=== PATIENT | female | born 2000 | race Caucasian/White ===

== ENCOUNTER 2023-07-01 13:45 | Outpatient (RCR) | payer BC, SELFPAY | END 2023-07-04 09:31 | disposition home or self-care (01) | PROVIDERS: PCP Family Medicine; Visit Provider Orthopaedic Surgery | DX: M43.17 Spondylolisthesis, lumbosacral region (principal); M54.16 Radiculopathy, lumbar region; M62.81 Muscle weakness (generalized); M54.50 Low back pain, unspecified; Z51.89 Encounter for other specified aftercare | CPT/HCPCS: 97110; 97112; 97140; 97162 ==